=== PATIENT | female | born 1995 | race Caucasian/White ===

== ENCOUNTER 2019-06-13 11:36 | Emergency (ER) | payer SELFPAY ==
[~2019-06-13] VITALS: Ht 160 cm; Wt 49.9 kg
[2019-06-13 11:46] VITALS: BP 109/73
--- NOTE | 2019-06-13 11:46 | NUR ---
PT AMBULATED TO ER BED 09
--- NOTE | 2019-06-13 11:52 | NUR ---
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 PT REPORTS LOST VOICE AND SWOLLEN THROAT SINCE INGESTING WALNUT, NO SIGNIFICANT DYSPNEA. MILD CHEST DISCOMFORT. RASH IS BLANCHABLE. LUNGS CTAB. VSS. HX DENIES Addendum: 06/13/19 at 1158 by WILLARD TOOK BENADRYL TABS RETAIL CASHIER BUT NO/MINIMAL RELIEF
[2019-06-13] MEDS ORDERED: DEXAMETHASONE 10 MG/ML VIAL IM ONE (11:55)
[2019-06-13] MEDS ORDERED: EPINEPHrine 1:1000 - 1 MG/ML AMP IM ONE (11:55)
--- NOTE | 2019-06-13 12:40 | NUR ---
PT STATES SHE FEELS MUCH BETTER, VOICE MORE CLEAR NOW.
--- NOTE | 2019-06-13 12:43 | NUR ---
Patient discharged with v/s stable. Written and verbal after care instructions given and explained. Patient alert, oriented and verbalized understanding of instructions. Ambulatory with steady gait. All questions addressed prior to discharge. ID band removed. Patient advised to follow up with PMD. Rx of PREDNISONE, EPINEPHRINE PEN, BENADRYL given. Patient educated on indication of medication including possible reaction and side effects. Opportunity to ask questions provided and answered.
[2019-06-13 12:44] VITALS: BP 123/68
== END 2019-06-13 12:43 | disposition home or self-care (01) ==
LOC: MED 11:36
DX: T78.1XXA Other adverse food reactions, not elsewhere classified, initial encounter (principal); Z88.0 Allergy status to penicillin; Z91.018 Allergy to other foods; X58.XXXA Exposure to other specified factors, initial encounter
CPT/HCPCS: 96372; 99283; J0171; J1100